=== PATIENT | female | born 1950 | race Caucasian/White ===

== ENCOUNTER → 2016-07-25 | Outpatient (CLI) | payer MEDICARE, OTHER ==
--- NOTE | 2016-07-25 16:21 | CR ---
EXAMINATION: Bilateral knees HISTORY: Pain COMPARISON: None TECHNIQUE: 4 views bilaterally FINDINGS: There is severe joint space narrowing within the medial compartments bilaterally and along the lateral facet of the patellofemoral compartment. Small to moderate osteophytes noted. No signif icant joint effusion. No acute osseous abnormality. IMPRESSION: Advanced osteoarthritic changes bilaterally.
== END ==
LOC: MW.CHORTHO 07:40
PROVIDERS: ATTEND Physician Assistant
DX: M25.561 Pain in right knee (principal); M25.562 Pain in left knee; M17.0 Bilateral primary osteoarthritis of knee
CPT/HCPCS: 20610; 73564; G0463; J1040; J7326

== ENCOUNTER 2018-09-26 07:25 | Day surgery (SDC) | payer MEDICARE, OTHER ==
[~2018-09-26 07:25] MED LIST: Lactated Ringers 1,000 ML IV SCH; Midazolam 1 MG/ML 2 ML SDV ONE; Propofol 200 MG/20 ML SDV ONE; Sodium Chloride 0.9% 10 ML SDV IV PRN; Sodium Chloride 0.9% 10 ML Syringe FLUSH PRN; Sodium Chloride 0.9% 2.5 ML Syringe FLUSH PRN; fentaNYL 100 MCG/2 ML SDV ONE
[2018-09-26] MEDS ORDERED: cefOXitin 2 GM in Sodium Chloride 0.9% 100 ML IV ONE (09:02)
--- NOTE | 2018-09-26 09:06 | PCM.PREANE ---
Preanesthetic Assessment - Anesthesia/Transfusion/Family Hx Anesthesia History: Prior Anesthesia Without Reaction Family History of Anesthesia Reaction: No Transfusion History: No Prior Transfusion(s) Intubation History: Unknown - Review of Systems General: No Symptoms Pulmonary: No Symptoms Cardiovascular: No Symptoms Gastrointestinal: Abdominal Pain, Diarrhea Neurological: No Symptoms Other: Reports: None - Physical Assessment NPO Status Date: 09/26/18 NPO Status Time: 00:00 O2 Sat by Pulse Oximetry: 97 Respiratory Rate: 16 Vital Signs: Last Vital Signs Temp 36.1 C 09/26/18 08:13 Pulse 74 09/26/18 08:13 Resp 16 09/26/18 08:13 BP 145/95 H 09/26/18 08:13 Pulse Ox 97 09/26/18 08:13 Height: 5 ft 3 in Weight: 107.955 kg ASA Class: 3 Mental Status: Alert & Oriented x3 Airway Class: Mallampati = 2 Dentition: Reports: Normal Dentition Thyro-Mental Finger Breadths: 3 Mouth Opening Finger Breadths: 3 (narrow mouth) ROM/Head Extension: Limited/Partial Lungs: Clear to Auscultation, Normal Respiratory Effort Cardiovascular: Regular Rate, Regular Rhythm - Allergies Allergies/Adverse Reactions: Allergies Allergy/AdvReac Type Severity Reaction Status Date / Time adhesive Allergy Rash Verified 09/23/18 12:50 - Blood Blood Available: No - Anesthesia Plan Pre-Op Medication Ordered: None - Acknowledgements Anesthesia Type Planned: MAC Pt an Appropriate Candidate for the Planned Anesthesia: Yes Alternatives and Risks of Anesthesia Discussed w Pt/Guardian: Yes Pt/Guardian Understands and Agrees with Anesthesia Plan: Yes PreAnesthesia Questionnaire HEENT History: Reports: Allergic Rhinitis, Cataract Cardiovascular History: Reports: Hypertension, Other (See Below) Other Cardiovascular History: murmur in the past Respiratory History: Reports: None Gastrointestinal History: Reports: Diverticulosis, GERD, Irritable Bowel Syndrome Other Gastrointestinal History: diarreha, constipation Genitourinary History: Reports: None 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: Musculoskeletal History: Reports: Osteoarthritis, Other (See Below) Other Musculoskeletal History: bilateral leg edema Neurological History: Reports: None Psychiatric History: Reports: None Endocrine/Metabolic History: Reports: Hypothyroidism, Obesity/BMI 30+ (BMI 42.2) Hematologic History: Reports: Anemia (with associated fatigue) Immunologic History: Reports: None Oncologic (Cancer) History: Reports: None Dermatologic History: Reports: None - Past Surgical History Head Surgeries/Procedures: Reports: None HEENT Surgical History: Reports: Cataract Surgery, Tonsillectomy Cardiovascular Surgical History: Reports: Varicose Other Cardiovascular Surgeries/Procedures: bilateral varicose vein stripping Respiratory Surgical History: Reports: None GI Surgical History: Reports: Appendectomy, Cholecystectomy, Colonoscopy ('13 sigmoid diverticulosis) Female Surgical History: Reports: Section, Hysterectomy Endocrine Surgical History: Reports: None Neurological Surgical History: Reports: Laminectomy, Lumbar Spine Other Neurological Surgeries/Procedures: back surgery x2 Musculoskeletal Surgical History: Reports: Knee Replacement (left 02/03), Shoulder Replacement (right- 2 years ago) Other Musculoskeletal Surgeries/Procedures:: right TSA - has hardware, left TKA Oncologic Surgical History: Reports: None Dermatological Surgical History: Reports: None - SUBSTANCE USE Smoking Status *Q: Never Smoker Recreational Drug Use History: No - HOME MEDS Home Medications: Home Meds Calcium Carbonate/Vitamin D3 [Calcium 600 + Vit D Tablet] 1 tab PO DAILY [History] Levothyroxine Sodium [Synthroid] 50 mcg PO BEDTIME 05/13/14 [History] Losartan Potassium 100 mg PO BEDTIME 05/13/14 [History] Omeprazole [Prilosec] 20 mg PO DAILY 05/13/14 [History] Potassium Chloride [Klor-Con 10] 10 meq PO DAILY 05/13/14 [History] hydroCHLOROthiazide [Hydrochlorothiazide] 25 mg PO DAILY 05/13/14 [History] Cholecalciferol (Vitamin D3) [Vitamin D3] 1,000 unit PO DAILY 01/16/18 [History] Clobetasol [Clobetasol Propionate 0.05% Cream] 1 applic TOP ASDIRECTED PRN 01/16 [History] Cyanocobalamin (Vitamin B-12) [Vitamin B-12] 250 mcg PO DAILY 01/16/18 [History] Methylcellulose [Fiber] 6 tab PO DAILY 01/16/18 [History] Sargent-3/DHA/Epa/Fish Oil [Sargent-3 Fish Oil 1,000 MG Sfgl] 1,000 mg PO DAILY [History] Ubidecarenone [Co Q-10] 100 mg PO DAILY 01/16/18 [History] Celecoxib [CeleBREX] 200 mg PO DAILY #30 cap 01/22/18 [Rx] Aspirin [Halfprin] 81 mg PO DAILY 09/23/18 [History] Furosemide [Lasix] 20 mg PO DAILY PRN 09/23/18 [History] rOPINIRole [Requip] 1 tab PO BEDTIME 09/23/18 [History] Turmeric 1 tab PO DAILY 09/24/18 [History] - CURRENT (IN HOUSE) MEDS Current Meds: Current Medications Lactated Ringer's (Ringers, Lactated) 1,000 mls @ 125 mls/hr IV ASDIRECTED FABRIZIO Last Admin: 09/26/18 08:30 Dose: 125 mls/hr Cefotaxime Sodium 2 gm/ Sodium (Chloride) 100 mls @ 200 mls/hr IV ONETIME ONE Stop: 09/26/18 09:00 Sodium Chloride (Saline Flush) 10 ml FLUSH ASDIRECTED PRN PRN Reason: Keep Vein Open Sodium Chloride (Saline Flush) 2.5 ml FLUSH ASDIRECTED PRN PRN Reason: Keep Vein Open Sodium Chloride (Saline Flush) 10 ml FLUSH ASDIRECTED PRN PRN Reason: Keep Vein Open Sodium Chloride (Saline Flush) 2.5 ml FLUSH ASDIRECTED PRN PRN Reason: Keep Vein Open Sodium Chloride (Normal Saline) 10 ml IV ASDIRECTED PRN PRN Reason: IV Use Discontinued Medications Fentanyl (Sublimaze) Confirm Administered Dose 100 mcg .ROUTE .STK-MED ONE Stop: 09/26/18 07:17 Midazolam HCl (Versed 1 Mg/Ml) Confirm Administered Dose 2 mg .ROUTE .STK-MED ONE Stop: 09/26/18 07:17 Propofol (Diprivan 20 Ml) Confirm Administered Dose 200 mg .ROUTE .STK-MED ONE Stop: 09/26/18 07:17
[2018-09-26] MEDS ORDERED: Sodium Chloride 0.9% 20 ML ONE (09:26)
[2018-09-26] MEDS ORDERED: cefOXitin 1 GM Vial ONE (09:26)
[2018-09-26] MEDS ORDERED: Propofol 200 MG/20 ML SDV ONE (10:26)
--- NOTE | 2018-09-26 10:45 | PCM.OPNOTE ---
- General Post-Op/Procedure Note Date of Surgery/Procedure: 09/26/18 Operative Procedure(s): Colonoscopy with biopsy Findings: Ascending colon polyp Pre Op Diagnosis: Change in bowel habits Post-Op Diagnosis: ascending colon polyp Anesthesia Technique: MAC Primary Surgeon: Justa Simon Condition: Good
[2018-09-26 12:08] VITALS: BP 110/60
--- NOTE | 2018-09-26 13:08 | OR ---
SURGEON: JUSTA SIMON MD DATE OF PROCEDURE: 09/26/2018 PREOPERATIVE DIAGNOSIS: Change in bowel habits. POSTOPERATIVE DIAGNOSIS: Ascending colon polyp. PROCEDURE PERFORMED: Diagnostic colonoscopy with biopsies. PRIMARY SURGEON: Justa Simon MD. ANESTHESIA: MAC. INSTRUMENT USED: Olympus colonoscope. EXTENT OF EXAM: To the cecum. PREPARATION: Good. LIMITATIONS: None. INDICATION FOR EXAMINATION: The patient is a 68-year-old female who presents with chronic loose stools and crampy left lower quadrant pain. She had a scope 1 year ago which was normal. Recently, she has been taking antibiotics for chronic sinus infections and despite [id number] remedies, has not had any improvement. The decision was made to proceed with colonoscopy. I explained the procedure, expected perioperative course, and risks including bleeding, infection, or damage to surrounding structures including perforation. The patient verbalized understanding and wishes to proceed. PROCEDURE IN DETAIL: The patient was brought into the endoscopy suite and placed in a left lateral decubitus position. A time-out was completed verifying the patient's name, age, date of , allergies, and procedure to be performed. Monitored anesthesia care was induced and continuous oxygen was provided via nasal cannula throughout the procedure. After adequate sedation was achieved, a digital rectal exam was performed. This exam was within normal limits. A well lubricated colonoscope was inserted into the rectum and advanced under direct visualization to the level of the cecum. The cecum was identified by both visual and anatomic landmarks. A photograph was taken of the cecal cap as well as with the scope retroflexed within the cecum. The scope was then fully withdrawn while examining the color, texture, anatomy, and integrity of the mucosa from the cecum to the anal canal. In the very proximal ascending colon, the patient had a 1-2 cm pedunculated and irregular appearing polyp. This was removed in piecemeal fashion using a hot snare as well as a cold biopsy forceps. All pieces of the mass were placed in the same jar labeled as ascending colon polyp. I monitored the area for hemostasis. It appeared hemostatic. The remainder of the colonoscopy was normal. The scope was brought into the rectum and retroflexed to allow visualization of the anal canal opening. This appeared normal and a photograph was taken. The scope was then straightened out and fully withdrawn. The cecum to anus time was 15 minutes. The patient tolerated the procedure well and was taken to the PACU in stable condition. ENDOSCOPIC DIAGNOSIS: Ascending colon polyp. RECOMMENDATIONS: Follow up in clinic in 2 weeks. SHAHAB ROSE /[id number]
== END 2018-09-26 11:23 | disposition home or self-care (01) ==
LOC: MW.SDS 07:25
PROVIDERS: ATTEND Surgery
DX: D12.2 Benign neoplasm of ascending colon (principal); R19.4 Change in bowel habit; K21.9 Gastro-esophageal reflux disease without esophagitis; E03.9 Hypothyroidism, unspecified; K58.9 Irritable bowel syndrome, unspecified; E66.9 Obesity, unspecified; Z68.41 Body mass index [BMI] 40.0-44.9, adult; Z79.82 Long term (current) use of aspirin; Z79.899 Other long term (current) drug therapy; Z91.09 Other allergy status, other than to drugs and biological substances
CPT/HCPCS: 45385; J0694; J2250; J2704; J3010; J7120; 88305

== ENCOUNTER 2018-12-04 06:49 | Day surgery (SDC) | payer MEDICARE, OTHER ==
[~2018-12-04 06:49] MED LIST changes: -Midazolam 1 MG/ML 2 ML SDV ONE; -Propofol 200 MG/20 ML SDV ONE; -Sodium Chloride 0.9% 10 ML SDV IV PRN; -Sodium Chloride 0.9% 10 ML Syringe FLUSH PRN; -Sodium Chloride 0.9% 2.5 ML Syringe FLUSH PRN; -fentaNYL 100 MCG/2 ML SDV ONE; +oxyCODONE 5 MG Tab PO PRN
[2018-12-04] MEDS ORDERED: Ondansetron 4 MG/2 ML SDV ONE (07:13)
[2018-12-04] MEDS ORDERED: fentaNYL 250 MCG/5 ML SDV ONE (07:13)
[2018-12-04] MEDS ORDERED: Propofol 200 MG/20 ML SDV ONE (07:13)
[2018-12-04] MEDS ORDERED: Lidocaine 2% 5 ML SDV ONE (07:13)
[2018-12-04] MEDS ORDERED: Midazolam 1 MG/ML 2 ML SDV ONE (07:13)
--- NOTE | 2018-12-04 07:24 | PCM.PREANE ---
Preanesthetic Assessment - Anesthesia/Transfusion/Family Hx Anesthesia History: Prior Anesthesia Without Reaction Family History of Anesthesia Reaction: No Transfusion History: No Prior Transfusion(s) Intubation History: Unknown - Review of Systems General: No Symptoms Pulmonary: No Symptoms Cardiovascular: No Symptoms Gastrointestinal: No Symptoms Neurological: No Symptoms Other: Reports: None - Physical Assessment NPO Status Date: 12/03/18 Height: 5 ft 3 in Weight: 106.594 kg ASA Class: 2 Mental Status: Alert & Oriented x3 Airway Class: Mallampati = 3 Dentition: Reports: Normal Dentition ROM/Head Extension: Full Lungs: Clear to Auscultation, Normal Respiratory Effort Cardiovascular: Regular Rate, Regular Rhythm - Allergies Allergies/Adverse Reactions: Allergies Allergy/AdvReac Type Severity Reaction Status Date / Time adhesive Allergy Rash Verified 11/28/18 15:16 - Blood Blood Available: No - Anesthesia Plan Pre-Op Medication Ordered: None - Acknowledgements Anesthesia Type Planned: General Anesthesia Pt an Appropriate Candidate for the Planned Anesthesia: Yes Alternatives and Risks of Anesthesia Discussed w Pt/Guardian: Yes Pt/Guardian Understands and Agrees with Anesthesia Plan: Yes Additional Comments: PMH: s/p TKA, RLS, thyroid replacement, gerd, htn, IBS PLAN: ga/lma, pt to be admitted for 24 hr of abx after surgery PreAnesthesia Questionnaire HEENT History: Reports: Allergic Rhinitis, Cataract Other HEENT History: dry eyes bilat. 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: Musculoskeletal History: Reports: Osteoarthritis Neurological History: Reports: None Psychiatric History: Reports: None Endocrine/Metabolic History: Reports: Hypothyroidism, Obesity/BMI 30+ Hematologic History: Reports: None Immunologic History: Reports: None Oncologic (Cancer) History: Reports: None Dermatologic History: Reports: None - Past Surgical History Head Surgeries/Procedures: Reports: None HEENT Surgical History: Reports: Cataract Surgery, Tonsillectomy Cardiovascular Surgical History: Reports: Varicose Other Cardiovascular Surgeries/Procedures: bilateral varicose vein stripping Respiratory Surgical History: Reports: None GI Surgical History: Reports: Appendectomy, Cholecystectomy, Colonoscopy Female Surgical History: Reports: Section, Hysterectomy Endocrine Surgical History: Reports: None Neurological Surgical History: Reports: Laminectomy, Lumbar Spine Other Neurological Surgeries/Procedures: back surgery x2 Musculoskeletal Surgical History: Reports: Knee Replacement, Shoulder Replacement Other Musculoskeletal Surgeries/Procedures:: right TSA - has hardware, left TKA Oncologic Surgical History: Reports: None Dermatological Surgical History: Reports: None - SUBSTANCE USE Smoking Status *Q: Never Smoker Recreational Drug Use History: No - HOME MEDS Home Medications: Home Meds Calcium Carbonate/Vitamin D3 [Calcium 600 + Vit D Tablet] 1 tab PO DAILY [History] Levothyroxine Sodium [Synthroid] 50 mcg PO BEDTIME 05/13/14 [History] Losartan Potassium 100 mg PO BEDTIME 05/13/14 [History] Omeprazole [Prilosec] 20 mg PO DAILY 05/13/14 [History] Potassium Chloride [Klor-Con 10] 10 meq PO DAILY 05/13/14 [History] hydroCHLOROthiazide [Hydrochlorothiazide] 25 mg PO DAILY 05/13/14 [History] Cholecalciferol (Vitamin D3) [Vitamin D3] 1,000 unit PO DAILY 01/16/18 [History] Clobetasol [Clobetasol Propionate 0.05% Cream] 1 applic TOP ASDIRECTED PRN 01/16 [History] Cyanocobalamin (Vitamin B-12) [Vitamin B-12] 250 mcg PO DAILY 01/16/18 [History] Methylcellulose [Fiber] 6 tab PO DAILY 01/16/18 [History] Driscoll-3/DHA/Epa/Fish Oil [Driscoll-3 Fish Oil 1,000 MG Sfgl] 1,000 mg PO DAILY [History] Ubidecarenone [Co Q-10] 100 mg PO DAILY 01/16/18 [History] Celecoxib [CeleBREX] 200 mg PO DAILY #30 cap 01/22/18 [Rx] Aspirin [Halfprin] 81 mg PO DAILY 09/23/18 [History] Furosemide [Lasix] 20 mg PO DAILY 09/23/18 [History] rOPINIRole [Requip] 0.25 mg PO BEDTIME 09/23/18 [History] Dicyclomine HCl [Bentyl] 2 tab PO Q6H PRN 11/28/18 [History] - CURRENT (IN HOUSE) MEDS Current Meds: Current Medications Hydrocodone Bitart/Acetaminophen ([place] 325-5 Mg) 1 - 2 tab PO Q4H PRN PRN Reason: Pain Cefazolin Sodium/Dextrose 2 gm (/ Premix) 50 mls @ 100 mls/hr IV ONCALL FABRIZIO Lactated Ringer's (Ringers, Lactated) 1,000 mls @ 100 mls/hr IV ASDIRECTED FABRIZIO Discontinued Medications Fentanyl (Sublimaze) Confirm Administered Dose 250 mcg .ROUTE .STK-MED ONE Stop: 12/04/18 07:14 Lidocaine (Xylocaine-Mpf 2%) Confirm Administered Dose 5 ml .ROUTE .STK-MED ONE Stop: 12/04/18 07:14 Midazolam HCl (Versed 1 Mg/Ml) Confirm Administered Dose 2 mg .ROUTE .STK-MED ONE Stop: 12/04/18 07:14 Ondansetron HCl (Zofran) Confirm Administered Dose 4 mg .ROUTE .STK-MED ONE Stop: 12/04/18 07:14 Propofol (Diprivan 20 Ml) Confirm Administered Dose 200 mg .ROUTE .STK-MED ONE Stop: 12/04/18 07:14
[2018-12-04] MEDS ORDERED: Bupivacaine 0.25% 10 ML SDV ONE (07:43)
[2018-12-04] MEDS ORDERED: Lidocaine 1% 20 ML MDV ONE (07:43)
[2018-12-04] MEDS ORDERED: ceFAZolin 2 GM in Premix Bag 1 BAG IV SCH (08:00)
[2018-12-04] MEDS ORDERED: ceFAZolin 1 GM Vial ONE (08:19)
[2018-12-04] MEDS ORDERED: Sodium Chloride 0.9% 20 ML ONE (08:19)
[2018-12-04] MEDS ORDERED: ePHEDrine 50 MG/ML SDV ONE (08:21)
[2018-12-04] MEDS ORDERED: Glycopyrrolate 0.2 MG/ML SDV ONE (08:25)
[2018-12-04] MEDS ORDERED: Atropine 0.1 MG/ML 10 ML Syringe IVPUSH PRN ×2 (08:46)
[2018-12-04] MEDS ORDERED: Albuterol 0.083% 2.5 MG/3 ML Neb Soln NEB PRN (08:46)
[2018-12-04] MEDS ORDERED: fentaNYL 100 MCG/2 ML SDV IVPUSH PRN (08:46)
[2018-12-04] MEDS ORDERED: Naloxone 0.4 MG/ML Syringe IVPUSH PRN (08:46)
[2018-12-04] MEDS ORDERED: EPINEPHrine 1:10,000 1 MG/10 ML Syringe IVPUSH PRN (08:46)
[2018-12-04] MEDS ORDERED: 50% Dextrose in Water 50 ML Syringe IVPUSH PRN (08:46)
[2018-12-04] MEDS ORDERED: Acetaminophen/HYDROcodone 325-5 MG Tab PO PRN (09:00)
[2018-12-04] MEDS ORDERED: Sodium Chloride 0.9% 10 ML Syringe FLUSH PRN (09:05)
[2018-12-04] MEDS ORDERED: Sodium Chloride 0.9% 2.5 ML Syringe FLUSH PRN (09:05)
[2018-12-04] MEDS ORDERED: Aluminum Hydroxide/Magnesium Hydroxide/Simethicone Susp 30 ML Cup PO PRN (09:05)
[2018-12-04] MEDS ORDERED: diphenhydrAMINE 25 MG Cap PO PRN (09:05)
[2018-12-04] MEDS ORDERED: Bisacodyl 10 MG Supp RECTAL PRN (09:05)
[2018-12-04] MEDS ORDERED: Docusate Sodium 100 MG Cap PO PRN (09:05)
[2018-12-04] MEDS ORDERED: Ondansetron 4 MG/2 ML SDV IVPUSH PRN (09:05)
[2018-12-04] MEDS ORDERED: Morphine 2 MG/ML Syringe IVPUSH PRN (09:16)
--- NOTE | 2018-12-04 09:16 | PCM.POSTAN ---
POST ANESTHESIA ASSESSMENT - MENTAL STATUS Mental Status: Alert, Oriented - VITAL SIGNS Vital Signs: Last Vital Signs Temp 97.5 F 12/04/18 09:01 Pulse 87 12/04/18 09:11 Resp 9 L 12/04/18 09:11 BP 127/69 12/04/18 09:11 Pulse Ox 100 12/04/18 09:11 - RESPIRATORY Respiratory Status: Respiratory Rate WNL, Airway Patent, O2 Saturation Stable - CARDIOVASCULAR CV Status: Pulse Rate WNL, Blood Pressure Stable - GASTROINTESTINAL GI Status: No Symptoms - POST OP HYDRATION Hydration Status: Adequate & Stable
[2018-12-04] MEDS ORDERED: Dicyclomine 10 MG Cap PO PRN (09:22)
[2018-12-04] MEDS: Ketorolac 15 MG/ML SDV IVPUSH SCH ×3 (10:08→20:36)
--- NOTE | 2018-12-04 10:24 | PCM.OPNOTE ---
- General Post-Op/Procedure Note Date of Surgery/Procedure: 12/04/18 Operative Procedure(s): L knee scope with limited synovectomy. R knee cortisone injection Post-Op Diagnosis: DJD R and L knee. painful TKA left Anesthesia Technique: General ET Tube Primary Surgeon: Samantha Benavides Administrative Court Justice: Jadyn Patel EBL in mLs: 10 Condition: Good Free Text/Narrative:: tt=20 min Intake & Output 12/03/18 12/04/18 12/04/18 22:59 06:59 14:59 Intake Total 900 Balance 900
[2018-12-04] MEDS: Hydrochlorothiazide 25 MG Tab PO SCH (12:50)
[2018-12-04] MEDS: Potassium Chloride 10 MEQ Tab.ER PO SCH (12:50)
--- NOTE | 2018-12-04 14:37 | OR ---
SURGEON: Samantha Benavides MD DATE OF PROCEDURE: 12/04/2018 PREOPERATIVE DIAGNOSES: 1. Degenerative joint disease, left knee. 2. Degenerative joint disease, right knee. 3. Painful total knee arthroplasty, left. POSTOPERATIVE DIAGNOSES: 1. Degenerative joint disease, left knee. 2. Degenerative joint disease, right knee. 3. Painful total knee arthroplasty, left. PROCEDURES: 1. Right knee injection, cortisone, large joint. 2. Left knee arthroscopy with limited synovectomy. PRIMARY SURGEON: Samantha Benavides MD. [place]ID[place] ATTENDANT: LEA Morris. ANESTHESIA: General. ESTIMATED BLOOD LOSS: 5 mL. TOURNIQUET TIME: 18 minutes. COMPLICATIONS: None. DVT PROPHYLAXIS: Not indicated. IMPLANTS USED: None. BRIEF HISTORY: Cyndy is a 68-year-old female who has had complaint of progressive right knee pain. She has had cortisone injections in the past for known degenerative changes. I recommended that we repeat this again today. She has previously undergone a left total knee arthroplasty. She did well initially, however, has developed pain along the joint line. Due to her lack of response to conservative treatment, I did recommend surgical intervention. The risks and goals of the procedure were discussed with the patient and were documented preoperatively. She agreed to proceed. DESCRIPTION OF PROCEDURE: The patient was properly identified and brought to the operating room. She was transferred from the OR cart and placed on the operating table in supine position. General anesthesia was administered. After adequate anesthesia was obtained, a well-padded tourniquet was applied to the left lower extremity. The left lower extremity was then prepped in standard fashion using ChloraPrep solution. It was then sterilely draped. The right knee was also prepped in standard fashion. A mixture of 2 mL 0.5% Marcaine and 2 mL Depo-Medrol (80 mg/mL) were injected into the right knee via a superolateral retropatellar approach. A Band-Aid was then applied. Prior to starting, a time-out was performed to ensure correct site and procedure. Preoperative antibiotics were given. The surgical site was not marked preoperatively due to the bilateral nature of the procedure. An Esmarch was used to exsanguinate the left lower extremity and the tourniquet was inflated to 250 mmHg. A lateral portal arthrotomy was established. Blunt trocar and cannula were introduced into the suprapatellar pouch. Camera, inflow, and outflow were assembled. Scar tissue was noted surrounding the patella. A medial portal was established and a shaver was introduced. Limited synovectomy was performed. We then extended down the medial and lateral gutters. Excess scar tissue was also noted here and this was also resected. The prosthesis was visualized, both femoral and tibial. It was probed and was found to be stable. The post notch was also visualized with no significant scar tissue. Once the extra scar tissue had been excised, I did take the knee through a range of motion. She had nearly full range of motion with flexion to 120 degrees. She was only limited by her soft tissue envelope. She had full extension. She was stable to varus and valgus stressing and had no significant anterior translation of the tibia. Instruments were then removed from the knee. The portal sites were closed with 3-0 nylon. 1% Lidocaine was injected along the portal tracts. Xeroform gauze was placed over the wound and a bulky dressing was applied. The tourniquet was then deflated. She was awakened from her anesthetic and transferred back to the operating room cart. She was brought to recovery room in stable condition. All needle and sponge counts were correct. TRACY / ROSE /[id number]
[2018-12-04] MEDS: ceFAZolin 2 GM in Premix Bag 1 BAG IV SCH (16:00)
[2018-12-04] MEDS ORDERED: Losartan 50 MG Tab PO SCH (21:00)
[2018-12-04] MEDS ORDERED: rOPINIRole 0.5 MG Tab PO SCH (21:00)
[2018-12-05] MEDS: ceFAZolin 2 GM in Premix Bag 1 BAG IV SCH (00:18)
[2018-12-05] MEDS: Ketorolac 15 MG/ML SDV IVPUSH SCH (04:05)
[2018-12-05] MEDS: Hydrochlorothiazide 25 MG Tab PO SCH (08:36)
[2018-12-05] MEDS: Potassium Chloride 10 MEQ Tab.ER PO SCH (08:36)
[2018-12-05 08:43] VITALS: BP 131/60; PULSE 71
[2018-12-05] MEDS ORDERED: Aspirin 325 MG Tab PO SCH (09:00)
[2018-12-05] MEDS ORDERED: Celecoxib 100 MG Cap PO SCH (09:00)
[2018-12-05] MEDS ORDERED: Omeprazole 20 MG Cap.CR PO SCH (09:00)
[2018-12-05] MEDS ORDERED: Polyethylene Glycol 3350 Powder 17 GM Packet PO SCH (09:00)
[2018-12-05] MEDS ORDERED: Famotidine 20 MG Tab PO SCH (09:00)
[2018-12-05] MEDS ORDERED: Furosemide 20 MG Tab PO SCH (09:00)
--- NOTE | 2018-12-05 12:09 | PCM48HPAN ---
Post Anesthesia Note - EVALUATION WITHIN 48HRS OF ANESTHETIC Vital Signs in Normal Range: Yes Patient Participated in Evaluation: Yes Respiratory Function Stable: Yes Airway Patent: Yes Cardiovascular Function Stable: Yes Hydration Status Stable: Yes Pain Control Satisfactory: Yes Nausea and Vomiting Control Satisfactory: Yes Mental Status Recovered: Yes Vital Signs: Last Vital Signs Temp 96.1 F 12/05/18 08:00 Pulse 71 12/05/18 08:00 Resp 18 12/05/18 08:00 BP 131/60 12/05/18 08:00 Pulse Ox 94 L 12/05/18 08:00
--- NOTE | 2018-12-05 12:58 | PCM.DCSUM1 ---
Discharge Summary - Hospital Course Free Text/Narrative:: s/p Left knee arthroscopy with limited synovectomy HPI Initial Comments: document #[id number] - Discharge Data Discharge Date: 12/05/18 Discharge Disposition: Home, Self-Care 01 Condition: Good - Referral to Home Health Primary Care Physician: Daniel Donaldson, PT - Patient Summary/Data Operative Procedure(s) Performed: L knee scope with limited synovectomy. R knee cortisone injection Consults: Consultations 12/04/18 09:05 PT Evaluation and Treatment [CONS] Routine - Patient Instructions Other/Special Instructions: Refer to Dr. Samantha Benavides's 'Post-operative patient instructions for KNEE ARTHROSCOPY' and 'Knee Arthroscopy Exercise Guide. ' - Discharge Plan Prescriptions/Med Rec: Acetaminophen/HYDROcodone [[place] 325-5 MG] 1 - 2 tab PO Q4H PRN #20 tablet PRN Reason: Pain Home Medications: Home Meds Calcium Carbonate/Vitamin D3 [Calcium 600 + Vit D Tablet] 1 tab PO DAILY [History] Levothyroxine Sodium [Synthroid] 50 mcg PO BEDTIME 05/13/14 [History] Cholecalciferol (Vitamin D3) [Vitamin D3] 1,000 unit PO DAILY 01/16/18 [History] Clobetasol [Clobetasol Propionate 0.05% Cream] 1 applic TOP ASDIRECTED PRN 01/16 [History] Cyanocobalamin (Vitamin B-12) [Vitamin B-12] 250 mcg PO DAILY 01/16/18 [History] Methylcellulose [Fiber] 6 tab PO DAILY 01/16/18 [History] [place]-3/DHA/Epa/Fish Oil [[place]-3 Fish Oil 1,000 MG Sfgl] 1,000 mg PO DAILY [History] Ubidecarenone [Co Q-10] 100 mg PO DAILY 01/16/18 [History] Aspirin [Halfprin] 81 mg PO DAILY 09/23/18 [History] Acetaminophen/HYDROcodone [[place] 325-5 MG] 1 - 2 tab PO Q4H PRN #20 tablet 12/05 [Rx] Celecoxib [CeleBREX] 200 mg PO DAILY cap 12/05/18 [Rx] Dicyclomine [Bentyl] 20 mg PO Q6H PRN cap 12/05/18 [Rx] Famotidine [Pepcid] 40 mg PO DAILY tablet 12/05/18 [Rx] Furosemide [Lasix] 20 mg PO DAILY tablet 12/05/18 [Rx] Losartan [Cozaar] 100 mg PO BEDTIME tablet 12/05/18 [Rx] Omeprazole 20 mg PO ACBREAKFAST cap.cr 12/05/18 [Rx] Polyethylene Glycol 3350 [MiraLAX] 17 gm PO DAILY packet 12/05/18 [Rx] Potassium Chloride [Klor-Con 10] 10 meq PO DAILY tab.er 12/05/18 [Rx] hydroCHLOROthiazide [Hydrochlorothiazide] 25 mg PO DAILY tablet 12/05/18 [Rx] rOPINIRole [Requip] 0.25 mg PO BEDTIME tablet 12/05/18 [Rx] Patient Handouts: Acetaminophen; Hydrocodone tablets or capsules Referrals: Samantha Benavides MD [Physician] - 12/17/18 11:00 am - Discharge Summary/Plan Comment DC Time >30 min.: No - Patient Data Vitals - Most Recent: Last Vital Signs Temp 35.6 C 12/05/18 08:00 Pulse 71 12/05/18 08:00 Resp 18 12/05/18 08:00 BP 131/60 12/05/18 08:00 Pulse Ox 94 L 12/05/18 08:00 Weight - Most Recent: 106.594 kg I&O - Last 24 hours: Intake & Output 12/04/18 12/05/18 12/05/18 22:59 06:59 14:59 Intake Total 1430 740 Output Total 400 1350 Balance 1030 -610 Med Orders - Current: Current Medications Hydrocodone Bitart/Acetaminophen ([place] 325-5 Mg) 1 - 2 tab PO Q4H PRN PRN Reason: Pain Al Hydroxide/Mg Hydroxide (Mag-Al Plus) 30 ml PO Q4H PRN PRN Reason: Indigestion Albuterol (Proventil Neb Soln) 2.5 mg NEB ONETIME PRN PRN Reason: Wheezing Aspirin (Aspirin) 325 mg PO BID [facility] Last Admin: 12/05/18 08:36 Dose: 325 mg Bisacodyl (Dulcolax) 10 mg RECTAL DAILY PRN PRN Reason: Constipation Celecoxib (Celebrex) 200 mg PO DAILY [facility] Last Admin: 12/05/18 08:36 Dose: 200 mg Dicyclomine HCl (Bentyl) 20 mg PO Q6H PRN PRN Reason: Abdominal Pain Diphenhydramine HCl (Benadryl) 25 - 50 mg PO Q6H PRN PRN Reason: Itching Docusate Sodium (Colace) 100 mg PO BID PRN PRN Reason: Constipation Famotidine (Pepcid) 40 mg PO DAILY [facility] Last Admin: 12/05/18 08:36 Dose: 40 mg Furosemide (Lasix) 20 mg PO DAILY [facility] Last Admin: 12/05/18 08:36 Dose: 20 mg Hydrochlorothiazide (Hydrochlorothiazide) 25 mg PO DAILY [facility] Last Admin: 12/05/18 08:36 Dose: 25 mg Cefazolin Sodium/Dextrose 2 gm (/ Premix) 50 mls @ 100 mls/hr IV ONCALL [facility] Lactated Ringer's (Ringers, Lactated) 1,000 mls @ 100 mls/hr IV ASDIRECTED [facility] Last Admin: 12/04/18 07:30 Dose: 100 mls/hr Losartan Potassium (Cozaar) 100 mg PO BEDTIME [facility] Last Admin: 12/04/18 20:34 Dose: 100 mg Morphine Sulfate (Morphine) 1 - 3 mg IVPUSH Q3H PRN PRN Reason: Pain Omeprazole (Omeprazole) 20 mg PO ACBREAKFAST [facility] Last Admin: 12/05/18 08:36 Dose: 20 mg Ondansetron HCl (Zofran) 4 mg IVPUSH Q6H PRN PRN Reason: Nausea/Vomiting Polyethylene Glycol (Miralax) 17 gm PO DAILY [facility] Last Admin: 12/05/18 08:37 Dose: Not Given Potassium Chloride (Klor-Con 10) 10 meq PO DAILY [facility] Last Admin: 12/05/18 08:36 Dose: 10 meq Ropinirole HCl (Requip) 0.25 mg PO BEDTIME [facility] Last Admin: 12/04/18 20:35 Dose: 0.25 mg Sodium Chloride (Saline Flush) 10 ml FLUSH ASDIRECTED PRN PRN Reason: Keep Vein Open Sodium Chloride (Saline Flush) 2.5 ml FLUSH ASDIRECTED PRN PRN Reason: Keep Vein Open Discontinued Medications Atropine Sulfate (Atropine 0.1 Mg/Ml) 0.5 mg IVPUSH ASDIRECTED PRN PRN Reason: Hypo-perfusion Atropine Sulfate (Atropine 0.1 Mg/Ml) 1 mg IVPUSH ASDIRECTED PRN PRN Reason: Hypo-Perfusion Bupivacaine HCl (Sensorcaine-Mpf 0.25%) Confirm Administered Dose 10 ml .ROUTE .STK-MED ONE Stop: 12/04/18 07:44 Cefazolin Sodium (Ancef) Confirm Administered Dose 2 gm .ROUTE .STK-MED ONE Stop: 12/04/18 08:20 Dextrose/Water (Dextrose 50% In Water) 50 ml IVPUSH ASDIRECTED PRN PRN Reason: Hypoglycemia Ephedrine Sulfate (Ephedrine Sulfate) Confirm Administered Dose 50 mg .ROUTE .STK-MED ONE Stop: 12/04/18 08:22 Epinephrine HCl (Epinephrine 1:10,000) 1 mg IVPUSH ASDIRECTED PRN PRN Reason: ACLS Guidelines Fentanyl (Sublimaze) Confirm Administered Dose 250 mcg .ROUTE .STK-MED ONE Stop: 12/04/18 07:14 Fentanyl (Sublimaze) 50 - 100 mcg IVPUSH Q5M PRN PRN Reason: Pain Glycopyrrolate (Robinul) Confirm Administered Dose 0.2 mg .ROUTE .STK-MED ONE Stop: 12/04/18 08:26 Sodium Chloride (Normal Saline) Confirm Administered Dose 20 mls @ as directed .ROUTE .STK-MED ONE Stop: 12/04/18 08:20 Cefazolin Sodium/Dextrose 2 gm (/ Premix) 50 mls @ 100 mls/hr IV Q8H [facility] Stop: 12/05/18 00:29 Last Admin: 12/05/18 00:18 Dose: 100 mls/hr Ketorolac Tromethamine (Toradol) 15 mg IVPUSH Q6H [facility] Stop: 12/05/18 05:00 Last Admin: 12/05/18 04:05 Dose: 15 mg Lidocaine (Xylocaine-Mpf 2%) Confirm Administered Dose 5 ml .ROUTE .STK-MED ONE Stop: 12/04/18 07:14 Lidocaine HCl (Xylocaine-Mpf 1%) Confirm Administered Dose 5 ml .ROUTE .STK-MED ONE Stop: 12/04/18 07:44 Lidocaine HCl (Xylocaine 1%) Confirm Administered Dose 20 ml .ROUTE .STK-MED ONE Stop: 12/04/18 07:44 Midazolam HCl (Versed 1 Mg/Ml) Confirm Administered Dose 2 mg .ROUTE .STK-MED ONE Stop: 12/04/18 07:14 Naloxone HCl (Narcan) 0.1 mg IVPUSH ASDIRECTED PRN PRN Reason: Respiratory Depression Ondansetron HCl (Zofran) Confirm Administered Dose 4 mg .ROUTE .STK-MED ONE Stop: 12/04/18 07:14 Oxycodone HCl (Oxycodone) 5 - 10 mg PO Q4H PRN PRN Reason: Pain Stop: 12/05/18 08:00 Last Admin: 12/04/18 12:51 Dose: 10 mg Propofol (Diprivan 20 Ml) Confirm Administered Dose 200 mg .ROUTE .STK-MED ONE Stop: 12/04/18 07:14
--- NOTE | 2018-12-06 07:53 | DISCH ---
DATE OF DISCHARGE: 12/05/2018 PRIMARY CARE PHYSICIAN: Babar Lund M.D. HISTORY OF PRESENT ILLNESS: This 68-year-old female with progressive complaints of left knee pain, had previously undergone left total knee arthroplasty. She then developed pain along the joint line and due to conservative treatment, underwent surgical intervention. PREOPERATIVE DIAGNOSES: 1. Degenerative joint disease, left knee. 2. Painful total knee arthroplasty, left. OTHER MEDICAL DIAGNOSES: 1. Hypertension. 2. Dependent edema. 3. Hypothyroidism. 4. Restless legs syndrome. 5. Gastroesophageal reflux disease. 6. Irritable bowel syndrome. Cyndy underwent left knee arthroscopy with limited synovectomy on 12/04/2018, by Dr. Samantha Benavides. Performed under general anesthesia. No known surgical complications. She was transferred to Recovery in stable condition, then to Med/Surg for observation. HOSPITAL COURSE: Overall, Cyndy did well. Vital signs stable during hospitalization, afebrile. Tolerated oral food, fluids, without nausea or vomiting. She was weightbearing as tolerated with staff, ambulating well. She did receive physical therapy in the hospital to review knee conditioning and strengthening exercises. Following physical therapy, she had increased drainage on surgical bandage. Surgical dressings were removed on postop day #1 with incisions well approximated with sutures. She had no surrounding erythema. No active drainage. Medial arthroscopy portal had some surrounding ecchymosis. Neurovascular exam within normal limits. Denied calf pain or tenderness. DVT prophylaxis included SCDs bilaterally, aspirin, and early ambulation. Pain was controlled with Toradol and oral oxycodone. She received 24 hours of antibiotic coverage with Ancef 2 g every 8 hours. Postop day #1 morning, Cyndy felt ready for discharge home. Surgical dressing was removed. Incision sites reinforced each with a small Aquacel dressing. DISCHARGE MEDICATIONS: 1. [place] 5/325 mg 1 to 2 tablets every 4 hours p.r.n. 2. Aspirin 81 mg daily. 3. Celebrex 200 mg daily. 4. B12 injections as directed. 5. Dicyclomine 20 mg every 6 hours p.r.n. 6. Pepcid 40 mg daily. 7. Lasix 20 mg daily. 8. Hydrochlorothiazide 25 mg daily. 9. Losartan 100 mg at bedtime. 10.Levothyroxine 50 mcg at bedtime. 11.MiraLax 17 g daily. 12.Potassium chloride 10 mEq daily. 13.Requip 0.25 mg at bedtime. Cyndy was provided with Dr. Samantha Benavides's postoperative patient instruction sheet for knee arthroscopy and knee arthroscopy exercise guide. At this time, she is not necessitating formal physical therapy following discharge. Postop appointment is scheduled for December 17 at 11:[address] Samantha Benavides. Cyndy is directed to call or return to [facility] with acute questions or concerns. NORJESSE / PETARL /[id number]
== END 2018-12-05 11:00 | disposition home or self-care (01) ==
LOC: MW.SDS 06:49 → MW.MS 06:51 → MW.SDS 12-05 11:00
PROVIDERS: ATTEND Orthopaedic Surgery
DX: M17.0 Bilateral primary osteoarthritis of knee (principal); T84.84XA Pain due to internal orthopedic prosthetic devices, implants and grafts, initial encounter; M67.262 Synovial hypertrophy, not elsewhere classified, left lower leg; I10 Essential (primary) hypertension; K21.9 Gastro-esophageal reflux disease without esophagitis; M19.90 Unspecified osteoarthritis, unspecified site; E03.9 Hypothyroidism, unspecified; E66.9 Obesity, unspecified; Z68.41 Body mass index [BMI] 40.0-44.9, adult; Z96.652 Presence of left artificial knee joint; Z79.899 Other long term (current) drug therapy; Z79.82 Long term (current) use of aspirin; Z79.1 Long term (current) use of non-steroidal anti-inflammatories (NSAID); Z91.048 Other nonmedicinal substance allergy status
CPT/HCPCS: 20610; 29875; 97110; 97161; A9270; J0690; J1885; J2001; J2250; J2405; J2704; J3010; J3490; J7120

== ENCOUNTER 2019-12-30 10:56 | Day surgery (SDC) | payer MEDICARE, OTHER ==
[~2019-12-30 10:56] MED LIST changes: +Sodium Chloride 0.9% 10 ML SDV IV PRN; +Sodium Chloride 0.9% 10 ML Syringe FLUSH PRN; +Sodium Chloride 0.9% 2.5 ML Syringe FLUSH PRN; -oxyCODONE 5 MG Tab PO PRN
--- NOTE | 2019-12-30 11:20 | PCM.PREANE ---
Preanesthetic Assessment - Anesthesia/Transfusion/Family Hx Anesthesia History: Prior Anesthesia Without Reaction Family History of Anesthesia Reaction: No Transfusion History: No Prior Transfusion(s) Intubation History: Unknown - Review of Systems General: No Symptoms Pulmonary: No Symptoms Cardiovascular: No Symptoms Gastrointestinal: Abdominal Pain (left lower quadrant) Neurological: No Symptoms Other: Reports: None - Physical Assessment Height: 5 ft 3 in Weight: 109.316 kg ASA Class: 3 Mental Status: Alert & Oriented x3 Airway Class: Mallampati = 2 Dentition: Reports: Normal Dentition Thyro-Mental Finger Breadths: 3 Mouth Opening Finger Breadths: 3 ROM/Head Extension: Full Lungs: Clear to Auscultation, Normal Respiratory Effort Cardiovascular: Regular Rate, Regular Rhythm - Allergies Allergies/Adverse Reactions: Allergies Allergy/AdvReac Type Severity Reaction Status Date / Time adhesive Allergy Rash Verified 12/24/19 10:10 - Blood Blood Available: No - Anesthesia Plan Pre-Op Medication Ordered: None - Acknowledgements Anesthesia Type Planned: MAC Pt an Appropriate Candidate for the Planned Anesthesia: Yes Alternatives and Risks of Anesthesia Discussed w Pt/Guardian: Yes Pt/Guardian Understands and Agrees with Anesthesia Plan: Yes PreAnesthesia Questionnaire HEENT History: Reports: Allergic Rhinitis, Cataract Other HEENT History: dry eyes bilat. Cardiovascular History: Reports: Hypertension, Other (See Below) Other Cardiovascular History: murmur in the past Respiratory History: Reports: None Gastrointestinal History: Reports: Colon Polyp, Diverticulosis, GERD, Irritable Bowel Syndrome Other Gastrointestinal History: diarreha, constipation Genitourinary History: Reports: None [employer] History: Reports: Musculoskeletal History: Reports: Osteoarthritis, Other (See Below) Other Musculoskeletal History: bilateral leg edema Neurological History: Reports: None Psychiatric History: Reports: None Endocrine/Metabolic History: Reports: Hypothyroidism, Obesity/BMI 30+ (BMI 42.7) Hematologic History: Reports: Anemia Immunologic History: Reports: None Oncologic (Cancer) History: Reports: None Dermatologic History: Reports: None - Infectious Disease History Infectious Disease History: Reports: None - Past Surgical History HEENT Surgical History: Reports: Cataract Surgery, Tonsillectomy GI Surgical History: Reports: Colonoscopy ('13 and last year) Female Surgical History: Reports: Section (x2), Hysterectomy Neurological Surgical History: Reports: Lumbar Spine Musculoskeletal Surgical History: Reports: Arthroscopic Knee (left, last year), Knee Replacement (lt. knee 3 years ago), Shoulder Replacement (rt. shoulder 5 years ago) - SUBSTANCE USE Tobacco Use Status *Q: Never Tobacco User Recreational Drug Use History: No - HOME MEDS Home Medications: Home Meds Calcium Carbonate/Vitamin D3 [Calcium 600 + Vit D Tablet] 1 tab PO DAILY 05/13/14 [History] Levothyroxine Sodium [Synthroid] 50 mcg PO BEDTIME 05/13/14 [History] Cholecalciferol (Vitamin D3) [Vitamin D3] 1,000 unit PO DAILY 01/16/18 [History] Clobetasol [Clobetasol Propionate 0.05% Cream] 1 applic TOP ASDIRECTED PRN 01/16/18 [History] Cyanocobalamin (Vitamin B-12) [Vitamin B-12] 250 mcg PO DAILY 01/16/18 [History] Methylcellulose [Fiber] 6 tab PO DAILY 01/16/18 [History] [place]-3/DHA/Epa/Fish Oil [[place]-3 Fish Oil 1,000 MG Sfgl] 1,000 mg PO DAILY 01/16/18 [History] Aspirin [Halfprin] 81 mg PO DAILY 09/23/18 [History] Celecoxib [CeleBREX] 200 mg PO DAILY cap 12/05/18 [Rx] Dicyclomine [Bentyl] 20 mg PO Q6H PRN cap 12/05/18 [Rx] Furosemide [Lasix] 20 mg PO DAILY tablet 12/05/18 [Rx] Losartan [Cozaar] 100 mg PO BEDTIME tablet 12/05/18 [Rx] Omeprazole 20 mg PO ACBREAKFAST cap.cr 12/05/18 [Rx] Potassium Chloride [Klor-Con 10] 10 meq PO DAILY tab.er 12/05/18 [Rx] hydroCHLOROthiazide [Hydrochlorothiazide] 25 mg PO DAILY tablet 12/05/18 [Rx] rOPINIRole [Requip] 0.25 mg PO BEDTIME tablet 12/05/18 [Rx] Magnesium Oxide [Magnesium] 500 mg PO DAILY 12/24/19 [History] - CURRENT (IN HOUSE) MEDS Current Meds: Current Medications Lactated Ringer's (Ringers, Lactated) 1,000 mls @ 125 mls/hr IV ASDIRECTED [facility] Sodium Chloride (Saline Flush) 10 ml FLUSH ASDIRECTED PRN PRN Reason: Keep Vein Open Sodium Chloride (Saline Flush) 2.5 ml FLUSH ASDIRECTED PRN PRN Reason: Keep Vein Open Sodium Chloride (Saline Flush) 10 ml FLUSH ASDIRECTED PRN PRN Reason: Keep Vein Open Sodium Chloride (Saline Flush) 2.5 ml FLUSH ASDIRECTED PRN PRN Reason: Keep Vein Open Sodium Chloride (Normal Saline) 10 ml IV ASDIRECTED PRN PRN Reason: IV Use
[2019-12-30] MEDS ORDERED: Lidocaine 2% 5 ML SDV ONE (11:38)
[2019-12-30] MEDS ORDERED: fentaNYL 100 MCG/2 ML SDV ONE (11:38)
[2019-12-30] MEDS ORDERED: Midazolam 1 MG/ML 2 ML SDV ONE (11:38)
[2019-12-30] MEDS ORDERED: Propofol 200 MG/20 ML SDV ONE (11:38)
--- NOTE | 2019-12-30 12:16 | PCM.OPNOTE ---
- General Post-Op/Procedure Note Date of Surgery/Procedure: 12/30/19 Operative Procedure(s): Diagnosis colonoscopy with polypectomy Findings: Diverticulosis, sigmoid colon polyp Pre Op Diagnosis: History of colon polyps Post-Op Diagnosis: Diverticulosis, sigmoid colon polyp Anesthesia Technique: [facility] [place] Surgeon: Justa Simon Condition: Good
--- NOTE | 2019-12-30 12:18 | PCM.POSTAN ---
POST ANESTHESIA ASSESSMENT - MENTAL STATUS Mental Status: Alert, Oriented - VITAL SIGNS Vital Signs: Last Vital Signs Temp 37.4 C 12/30/19 12:03 Pulse 63 12/30/19 12:11 Resp 18 12/30/19 12:11 BP 108/72 12/30/19 12:11 Pulse Ox 99 12/30/19 12:11 - RESPIRATORY Respiratory Status: Respiratory Rate WNL, Airway Patent, O2 Saturation Stable - CARDIOVASCULAR CV Status: Pulse Rate WNL, Blood Pressure Stable - GASTROINTESTINAL GI Status: No Symptoms - PAIN Pain Score: 0 - POST OP HYDRATION Hydration Status: Adequate & Stable - OBSERVATIONS Free Text/Narrative:: No anesthesia problems
--- NOTE | 2019-12-30 12:39 | PCM48HPAN ---
Post Anesthesia Note - EVALUATION WITHIN 48HRS OF ANESTHETIC Vital Signs in Normal Range: Yes Patient Participated in Evaluation: Yes Respiratory Function Stable: Yes Airway Patent: Yes Cardiovascular Function Stable: Yes Hydration Status Stable: Yes Pain Control Satisfactory: Yes Nausea and Vomiting Control Satisfactory: Yes Mental Status Recovered: Yes Vital Signs: Last Vital Signs Temp 37.4 C 12/30/19 12:03 Pulse 62 12/30/19 12:16 Resp 11 L 12/30/19 12:16 BP 130/73 12/30/19 12:16 Pulse Ox 99 12/30/19 12:16 - COMMENTS/OBSERVATIONS Free Text/Narrative:: No anesthesia problems
[2019-12-30 14:05] VITALS: BP 137/67; PULSE 61
--- NOTE | 2019-12-30 16:44 | OR ---
SURGEON: JUSTA SIMON MD DATE OF PROCEDURE: 12/30/2019 PREOPERATIVE DIAGNOSIS: History of colon polyps. POSTOPERATIVE DIAGNOSES: 1. Diverticulosis. 2. Sigmoid colon polyp. PROCEDURE PERFORMED: Diagnostic colonoscopy with polypectomy. PRIMARY SURGEON: Justa Simon MD ANESTHESIA: MAC. INSTRUMENT USED: Olympus colonoscope. EXTENT OF EXAM: To the cecum. PREPARATION: Good. LIMITATIONS: None. INDICATIONS FOR EXAMINATION: The patient is a 69-year-old female who 1 year ago underwent a colonoscopy and was found to have a large polyp within the ascending colon. The decision was made to proceed with a repeat colonoscopy in 1 year. The patient and I discussed the procedure, expected perioperative course, and risks. She verbalized understanding and wishes to proceed. PROCEDURE IN DETAIL: The patient was brought into the endoscopy suite and placed in the left lateral decubitus position. A time-out was completed verifying the patient's name, age, date of , allergies, and procedure to be performed. Monitored anesthesia care was induced and continuous oxygen was provided via nasal cannula throughout the procedure. After adequate sedation was achieved, a digital rectal exam was performed. This exam was within normal limits. A well-lubricated colonoscope was inserted in the rectum and advanced under direct visualization to the level of the cecum. The cecum was identified by both visual and anatomic landmarks. A photograph was taken of the cecal cap; however, I was unable to retroflex the scope within the cecum due to looping of the scope more proximally. The scope was then fully withdrawn while examining the color, texture, anatomy, and integrity of the mucosa from the cecum to the anal canal. I could clearly see the previous ink marking of the site of the large polyp. There was no evidence of recurrence. In the sigmoid colon, the patient was noted to have a flat sessile polyp. A photograph of this was taken and it was removed in piecemeal fashion using cold biopsy forceps. The patient had very mild scattered diverticulosis within the sigmoid colon. A photograph of this was taken. The scope was then brought into the rectum and retroflexed to allow visualization of the anal canal opening. This appeared normal and a photograph was taken. The scope was then straightened out and fully withdrawn. The cecum to anus time was 8 minutes. The patient tolerated the procedure well and was transferred to the PACU in stable condition. ENDOSCOPIC DIAGNOSES: 1. Diverticulosis. 2. Sigmoid colon polyp. RECOMMENDATIONS: Follow up in clinic in 2 weeks. SHAHAB ROSE /[id number]
== END 2019-12-30 12:53 | disposition home or self-care (01) ==
LOC: MW.SDS 10:56
PROVIDERS: ATTEND Surgery
DX: Z12.11 Encounter for screening for malignant neoplasm of colon (principal); D12.5 Benign neoplasm of sigmoid colon; K57.30 Diverticulosis of large intestine without perforation or abscess without bleeding; M17.0 Bilateral primary osteoarthritis of knee; K21.9 Gastro-esophageal reflux disease without esophagitis; I10 Essential (primary) hypertension; E03.9 Hypothyroidism, unspecified; G47.00 Insomnia, unspecified; E66.9 Obesity, unspecified; Z91.048 Other nonmedicinal substance allergy status; Z79.899 Other long term (current) drug therapy; Z98.890 Other specified postprocedural states; Z68.41 Body mass index [BMI] 40.0-44.9, adult
CPT/HCPCS: 45380; 88305; J2001; J2704; J3010; J7120; J2250

== ENCOUNTER 2021-10-27 08:57 | Day surgery (SDC) | payer MEDICARE, OTHER ==
[~2021-10-27 08:57] MED LIST changes: -Sodium Chloride 0.9% 10 ML SDV IV PRN; +Sodium Chloride 0.9% 20 ML SDV IV PRN
[2021-10-27] MEDS ORDERED: cefOXitin 2 GM in Premix Bag 1 BAG IV ONE (10:00)
[2021-10-27] MEDS ORDERED: Propofol 200 MG/20 ML SDV ONE (10:29)
[2021-10-27] MEDS ORDERED: Lidocaine 2% 5 ML SDV ONE (10:29)
[2021-10-27] MEDS ORDERED: fentaNYL 100 MCG/2 ML SDV ONE (10:30)
[2021-10-27 11:41] VITALS: BP 138/67; PULSE 57
== END 2021-10-27 12:00 | disposition home or self-care (01) ==
LOC: MW.SDS 08:57
PROVIDERS: ATTEND Surgery
DX: D12.3 Benign neoplasm of transverse colon (principal); K57.30 Diverticulosis of large intestine without perforation or abscess without bleeding; K52.9 Noninfective gastroenteritis and colitis, unspecified; E03.9 Hypothyroidism, unspecified; K21.9 Gastro-esophageal reflux disease without esophagitis; I10 Essential (primary) hypertension; E66.9 Obesity, unspecified; Z98.890 Other specified postprocedural states; Z91.048 Other nonmedicinal substance allergy status; Z79.82 Long term (current) use of aspirin; Z79.899 Other long term (current) drug therapy; Z79.890 Hormone replacement therapy; Z90.49 Acquired absence of other specified parts of digestive tract; Z68.42 Body mass index [BMI] 45.0-49.9, adult
CPT/HCPCS: 45380; J0694; J2704; J3010; J7120; 00811; 88305; 99100